=== PATIENT | male | born 1940 ===

== ENCOUNTER → 2018-05-05 13:26 | Outpatient (REF) | payer MEDICARE, SELFPAY ==
[2018-05-05 14:12] LABS: Cholesterol 151 mg/dL (140-199); HDL Cholesterol 50 mg/dL (40-60); LDL Cholesterol Calculated 77 mg/dL (<100); Triglycerides 118 mg/dL (35-150)
== END ==
LOC: LAB 13:26
PROVIDERS: Visit Provider Family Medicine
DX: R73.09 Other abnormal glucose (principal); E78.5 Hyperlipidemia, unspecified
CPT/HCPCS: 36415; 80061; 83036

== ENCOUNTER → 2018-08-01 19:25 | Outpatient (REF) | payer MEDICARE, SELFPAY ==
[2018-08-01 19:51] LABS: Alanine Aminotransferase 45 IU/L (21-72); Albumin Globulin Ratio 1.7 (1.0-2.8); Alkaline Phosphatase 63 U/L (38-126); Aspartate Aminotransferase 36 IU/L (17-59); Bilirubin Total 0.5 mg/dL (0.2-1.3); Blood Urea Nitrogen 21 mg/dL (9-20); Carbon Dioxide 25 mmol/L (22-32); Chloride 109 mmol/L (98-107); Estimated Glomerular Filt Rate 48.9 mL/min (>60); Globulin 2.4 g/dL (1.7-4.1); Glucose 141 mg/dL (80-110); HEMOLYSIS < 15 (0-50); Potassium 4.7 mmol/L (3.4-5.1); Sodium 140 mmol/L (137-145); Total Protein 6.4 g/dL (6.3-8.2)
== END ==
LOC: LAB 19:25
PROVIDERS: Visit Provider Family Medicine
DX: E11.9 Type 2 diabetes mellitus without complications (principal)
CPT/HCPCS: 36415; 80053; 83036